=== PATIENT | female | born 1950 | race Caucasian/White ===

== ENCOUNTER 2016-11-03 06:10 | Emergency (ER) | payer OTHER ==
[~2016-11-03] VITALS: Ht 162.6 cm; Wt 108.9 kg
[~2016-11-03 06:10] MED LIST: AMOXICILLIN500 M2 PO; AUGMENTIN 875 M1 TAB PO; AUGMENTIN250 MG/5 M PO; CILOXAN 0.50 GTT/1 B OPH; DOK100 MG PO; HYDRODIURIL 112.5 M1 PO; LASIX20 MG PO; NASONEX17 GM INH; TAZTIA XT240 MG PO; ZOFRAN4 M1 PO
--- NOTE | 2016-11-03 06:45 | ED DYSPNEA/ASTHMA COMPLAINT ---
History of Present Illness General Chief Complaint: Wheezing/Asthma Stated Complaint: DIFF BREATHING 02 SAT 98% Source: patient Exam Limitations: no limitations Vital Signs & Intake/Output Vital Signs & Intake/Output Vital Signs Date Time Temp Pulse Resp B/P Pulse O2 O2 Flow FiO2 Ox Delivery Rate 11/03 0855 97.1 70 18 128/64 96 Room Air 11/03 0833 96 11/03 0724 96.5 62 15 120/62 96 Room Air Room Air 11/03 0629 78 98 Room Air Allergies Coded Allergies: MDX - Atenolol (From TENORMIN) (Severe, ALTERED MENTAL STATE 06/11/12) MDX - Oxycodone (From PERCOCET) (Intermediate, SEVERE NAUSEA 03/25/15) MDX - Codeine (CODEINE) (Mild, SEVERE NAUSEA 06/11/12) MDX - Erythromycin (Mild, NAUSEA 06/11/12) MDX - Latex (Latex) (Mild, RASH 06/11/12) MDX - SULFA (sulfonamide) (SULFA (SULFONAMIDE)) (Mild, NAUSEA 06/11/12) MDX - Tetracycline (From Tetracycline Hydrochloride) (Mild, SEVERE NAUSEA ) MDX - Amoxicillin (From AUGMENTIN) (SEVERE NAUSEA 03/25/15) MDX - Clavulanic Acid (From AUGMENTIN) (SEVERE NAUSEA 03/25/15) Triage Note: PT STATES "MY LUNGS ARE FULL,IM HAVING TROUBLE BREATHING." PT ALSO COMPLAINS OF RIGHT AND LEFT FLANK PAIN WITH COUGHING. PT HAS BEEN EXPERIENCING THESE SYMPTOMS FOR 3 DAYS NOW. PT 98% ON RA. Triage Nurses Notes Reviewed? yes HPI: Patient presents for evaluation of difficulty breathing that began about 3 days ago. It addition the patient states that her voice has become hoarse and she has had a nonproductive cough with cough associated bilateral side rib pains. She states that she was once diagnosed with asthma but she states that that went away. She states that at one point she was told she has COPD but that has never been confirmed. She has a distant history of cigarette smoking. Patient states that her shortness of breath was severe and worse with exertion. Nothing seemed to make her feel better although she no longer has asthma medications to try. (CHRISTY CHUNG,KAMERON Umaña) Reconcile Medications Albuterol Sulfate (Proair Hfa) 90 MCG HFA.AER.AD 2-4 PUF INH Q4-6 PRN PRN shortness of breath Amoxicillin 500 MG CAPSULE 1 CAP PO TID sinusitis DILTIAZEM HCL (Taztia Xt) 240 MG CAPSULE.ER 1 CAP PO DAILY HTN (Reported) Docusate Sodium (Colace) 100 MG CAPSULE 1 SGL PO PRN STOOL SOFTENER (Reported ) Guaifenesin/Dextromethorphan (Tussin Dm Max Liquid) 200 MG-10 MG/5 ML LIQUID 5 -10 ML PO Q6P PRN cough, congestion Hydrochlorothiazide (Hydrodiuril 12.5 MG Tab) 12.5 MG CAPSULE 1 CAP PO DAILY HTN (Reported) Mometasone Furoate (Nasonex) 17 GM SPRAY.PUMP 2 SPRAY INH DAILY PRN SINUS INFLAMMATION/CONGESTION Ondansetron (Zofran Odt) 4 MG TAB.RAPDIS 1 TAB PO Q6P PRN NAUSEA/VOMITING Prednisone 20 MG TABLET 1 TAB PO BID bronchospasm (JOSE CHUNG,ERIK) Past History Travel History Traveled to [place] past 21 day No Medical History Any Pertinent Medical History? see below for history Neurological: NONE EENT: NONE Cardiovascular: hypertension Respiratory: NONE Gastrointestinal: NONE Hepatic: NONE Renal: NONE Musculoskeletal: NONE Psychiatric: NONE Endocrine: NONE Blood Disorders: NONE Cancer(s): NONE [employer]/Reproductive: NONE Surgical History Surgical History: NEPHRECTOMY, HYSTERECTOMY Psychosocial History Who do you live with Son Services at Home None What is your primary language Kazakh Tobacco Use: Quit >30 days ago ETOH Use: denies use Illicit Drug Use: denies illicit drug use Family History Hx Contributory? No (CHRISTY CHUNG,KAMERON Umaña) Review of Systems Review of Systems Constitutional: Reports: no symptoms. EENTM: Reports: see HPI. Respiratory: Reports: see HPI. Cardiovascular: Reports: no symptoms. GI: Reports: no symptoms. Genitourinary: Reports: no symptoms. Musculoskeletal: Reports: no symptoms. Skin: Reports: no symptoms. Neurological/Psychological: Reports: no symptoms. Hematologic/Endocrine: Reports: no symptoms. Immunologic/Allergic: Reports: no symptoms. All Other Systems: Reviewed and Negative (CHRISTY CHUNG,KAMERON Umaña) Physical Exam Physical Exam Respiratory: see below Comments: Gen.: Well-nourished, well-developed, no acute respiratory distress. Head: Normocephalic, atraumatic. Eyes: Normal inspection bilaterally Ears: Normal inspection bilaterally Nose: Normal inspection Throat/mouth : Moist mucosa, oropharynx normal Neck: Supple, full range of motion, no goiter Heart: Regular rate and rhythm, no murmurs rubs or gallops Lungs: Clear to auscultation bilaterally with normal air entry Chest: Nontender Back: Normal range of motion Abdomen: Soft, nontender, nondistended, normal bowel sounds Extremities: Normal range of motion grossly, equal radial pulses, no cyanosis clubbing or edema Neurologic: Cranial nerves grossly intact, speech is clear Skin: warm and dry Psychiatric: Calm, cooperative, no apparent delusions or hallucinations Core Measures ACS in differential dx? No Severe Sepsis Present: No Septic Shock Present: No (CHRISTY CHUNG,KAMERON Umaña) Progress Differential Diagnosis: URI, bronchitis, pneumonia, asthma/COPD Plan of Care: Orders Procedure Date/time Status EKG 11/03 643 Active Initial ED EKG: NSR, no ST T wave changes Comments: 11/03/2016 7:12:45 AM patient signed out to Dr. Garcia. (CHRISTY CHUNG,KAMERON Umaña) Diagnostic Imaging: Viewed by Me: Radiology Read. Discussed w/RAD: Radiology Read. CXR Impression: no acute abnormality (ERIK GARCIA MD) Departure Departure Condition: Stable Referrals: BRUNO CHUNG,FILIBERTO Carreon (PCP/Family) Departure Forms: Customer Survey General Discharge Information (CHRISTY CHUNG,KAMERON Umaña) Departure Time of Disposition: 752 Disposition: HOME OR SELF CARE Clinical Impression Primary Impression: Laryngotracheobronchitis Prescriptions: Current Visit Scripts Albuterol Sulfate (Proair Hfa) 2-4 PUF INH Q4-6 PRN PRN shortness of breath #1 INHAL Guaifenesin/Dextromethorphan (Tussin Dm Max Liquid) 5-10 ML PO Q6P PRN cough, congestion #240 ML Prednisolone Sod Phosphate (Orapred Odt) 1 TAB PO BID #[address] on top of the tongue where it will dissolve, then swallow (ERIK GARCIA MD) Critical Care Note Critical Care Note Critical Care Time: non-applicable (ERIK GARCIA MD) #1 INHAL Guaifenesin/Dextromethorphan (Tussin Dm Max Liquid) 5-10 ML PO Q6P PRN cough, congestion #240 ML (ERIK GARCIA MD)
--- NOTE | 2016-11-03 07:43 | RADIOLOGY REPORT ---
EXAMINATION: XR CHEST CLINICAL INFORMATION: Pneumonia cough bilateral rib pain COMPARISON: Prior chest May 2012 TECHNIQUE: 2 views of the chest were obtained. FINDINGS: No significant abnormality is noted involving the heart, lungs, mediastinum, bony thorax or soft tissues. IMPRESSION: Unremarkable examination.
[2016-11-03] MEDS ORDERED: TUSSIN DM MAX118 ML PO (07:56)
[2016-11-03] MEDS ORDERED: PREDNISONE20 M1 PO (07:56)
[2016-11-03] MEDS ORDERED: PROAIR HFA8.5 GM INH (07:56)
[2016-11-03 08:55] VITALS: BP 128/64
[2016-11-03] MEDS ORDERED: ORAPRED ODT15 M1 PO (09:23)
== END 2016-11-03 09:36 ==
LOC: ERH 06:10
DX: J40 Bronchitis, not specified as acute or chronic (principal); Z87.891 Personal history of nicotine dependence
CPT/HCPCS: 1263; 93005; 93010